=== PATIENT | female | born 1960 | race African-American/Black ===

== ENCOUNTER 2022-08-30 00:51 | Day surgery (SDC) | payer OTHER, SELFPAY ==
[2022-08-30 11:51] VITALS: BP 150/82; PULSE 73; RESP 19; TEMP 36.2; O2SAT 100
[2022-08-30] MEDS: LACTATED RINGERS 1,000 ML 150 ML IV CONT (12:13)
[2022-08-30 12:14] LABS: Glucose Point of Care 155 mg/dl (65-105)
--- NOTE | 2022-08-30 12:49 | P.PNAN_ITS ---
Anes - Initial Pre Proc Eval Procedure: Operation Date: 08/30/22 13:15 Proposed Procedures p Screening Colonoscopy - Reji Menendez MD Date/Time: 08/30/22 12:49 Surgeon: Reji Menendez MD Pre Op Diagnosis: neoplasm screening Patient Data Age: 62 Gender: F Height: 1.6 m Weight: 94.7 kg Last Vital Signs Temp 97.1 F L 08/30/22 11:51 Pulse 73 08/30/22 11:51 Resp 19 08/30/22 11:51 BP 150/82 H 08/30/22 11:51 Pulse Ox 100 08/30/22 11:51 O2 Del Method Room Air 08/30/22 11:51 Allergies Allergy/AdvReac Type Severity Reaction Status Date / Time No Known Allergies Allergy Verified 08/30/22 11:50 Home Medications Medication Instructions Recorded Confirmed Type amlodipine 10 mg tablet 10 mg PO DAILY 08/22/22 08/30/22 History glimepiride 4 mg tablet 4 mg PO DAILY 08/22/22 08/30/22 History ibuprofen 800 mg tablet 800 mg PO Q8H PRN Pain 08/22/22 08/30/22 History insulin glargine 100 26 unit subcut DAILY 08/22/22 08/30/22 History unit-lixisenatide 33 mcg/mL subcutaneous pen (Soliqua 100/33) insulin glargine U-300 conc 300 35 unit subcut DAILY 08/22/22 08/30/22 History unit/mL (3 mL) subcutaneous pen (Toujeo Max U-300 SoloStar) metformin 1,000 mg tablet 1,000 mg PO BID 08/22/22 08/30/22 History olmesartan 40 1 tablet PO DAILY 08/22/22 08/30/22 History mg-hydrochlorothiazide 25 mg tablet Laboratory Tests 08/30/22 12:09 POC Capillary Glucose 155 mg/dl H mg/dl (65-105) Patient hx anesthesia problems: none Family hx anesthesia problems: none Results Review: All pre-operative results and documents have been reviewed as part of the pre- operative evaluation. PMFSH Social History Social History Years smoked: 30 Smoking status: Current every day smoker Tobacco type: cigarettes Alcohol intake: current Alcohol use details: socially on weekends Substance use: never Substance use type: does not use Living arrangements: with family Spiritual care concerns: No Anes - Eval Final PreProcedure Day of Procedure 08/30/22 12:49 Patient weight: obese Heart: regular rate and rhythm Lungs: clear to auscultation Airway: Mallampati scale class II Neurological: alert and oriented Last oral intake: >/= 8 hours ASA classification: III Emergent: no Anesthetic plan: proceed Anesthesia type and monitoring: general GIVS and standard monitoring Results Review: All pre-operative results and documents have been reviewed as part of the pre- operative evaluation. Informed Consent: The patient's anesthetic plan and its attendant risks and benefits were discussed with the patient/family/POA. Questions were solicited and answers provided to the satisfaction of the patient/family/POA.
--- NOTE | 2022-08-30 13:04 | PM.HPGS ---
History of Present Illness History of Present Illness Consent: Risks, benefits, and alternatives have been discussed and questions answered. Patient agrees to proceed with procedure. Chief complaint: neoplasm screening Narrative: Ana M Vega is a 62 year old female here for screening colonoscopy Review of Systems Constitutional: Constitutional: Denies headache(s) and Denies weakness Eyes: Eyes: Denies blurry vision ENT: Reports Normal hearing present, Denies headache(s) and Denies neck pain Cardiovascular: Cardiovascular: Denies chest pain and Denies dyspnea Respiratory: Respiratory: Denies dyspnea Gastrointestinal: Gastrointestinal: Reports no additional gastrointestinal complaints Genitourinary: Genitourinary: Denies dysuria Musculoskeletal: Musculoskeletal: Denies neck pain Integumentary/Breasts: Skin/Breast: Denies dry skin Neurologic: Reports Normal hearing present, Denies headache(s) and Denies weakness Psychiatric: Psychiatric: Denies anxiety Endocrine: Endocrine: Denies change in body appearance Hematologic/Lymphatic: Hematologic/Lymphatic: Denies easy bleeding Allergic/Immunologic: Allergic/Immunologic: Denies urticaria [facility] Past Medical History Medical History (Updated 08/30/22 @ 13:05 by Reji Menendez MD) Colon cancer screening Social History Social History Years smoked: 30 Smoking status: Current every day smoker Tobacco type: cigarettes Alcohol intake: current Alcohol use details: socially on weekends Substance use: never Substance use type: does not use Living arrangements: with family Spiritual care concerns: No Meds Home Medications and Allergies Home Medications Medication Instructions Recorded Confirmed Type amlodipine 10 mg tablet 10 mg PO DAILY 08/22/22 08/30/22 History glimepiride 4 mg tablet 4 mg PO DAILY 08/22/22 08/30/22 History ibuprofen 800 mg tablet 800 mg PO Q8H PRN Pain 08/22/22 08/30/22 History insulin glargine 100 26 unit subcut DAILY 08/22/22 08/30/22 History unit-lixisenatide 33 mcg/mL subcutaneous pen (Soliqua 100/33) insulin glargine U-300 conc 300 35 unit subcut DAILY 08/22/22 08/30/22 History unit/mL (3 mL) subcutaneous pen (Toujeo Max U-300 SoloStar) metformin 1,000 mg tablet 1,000 mg PO BID 08/22/22 08/30/22 History olmesartan 40 1 tablet PO DAILY 08/22/22 08/30/22 History mg-hydrochlorothiazide 25 mg tablet Allergies Allergy/AdvReac Type Severity Reaction Status Date / Time No Known Allergies Allergy Verified 08/30/22 11:50 Vital Signs Vital Signs - 24 hr 08/30/22 11:51 Temperature 97.1 F L Pulse Rate 73 Respiratory Rate 19 Blood Pressure 150/82 H Pulse Oximetry 100 Oxygen Delivery Room Air Exam Const: General: comfortable and no acute distress HENMT: Face/Nose/Sinus: Normal nares present Eyes: General: appearance normal, both eyes and all related structures Neck: Neck: no JVD Resp: Auscultation: clear to auscultation bilaterally Cardio: Rate: regular rate Rhythm: regular rhythm GI: Inspection: non-distended GI Palp: Yes Soft to palpation Skin: General skin exam: normal color Neuro: General: gait normal Speech: normal speech Extrem: General: normal to inspection Psych: Mental Status: mental status grossly normal Assessment and Plan Assessment and plan (1) Colon cancer screening: Code(s): Z12.11 - Encounter for screening for malignant neoplasm of colon Status: Acute Assessment and Plan: colonoscopy
[2022-08-30 13:32] VITALS: BP 113/62; PULSE 76; RESP 19; O2SAT 100
[2022-08-30 13:42] VITALS: BP 133/81; PULSE 71; RESP 18; O2SAT 100
[2022-08-30 13:52] VITALS: BP 147/92; PULSE 73; RESP 18; O2SAT 100
== END 2022-08-30 14:01 | disposition home or self-care (01) ==
PROVIDERS: PCP Internal Medicine; Visit Provider Internal Medicine Gastroenterology
PROC: 0DJD8ZZ Inspection of Lower Intestinal Tract, Via Natural or Artificial Opening Endoscopic (ICD-10-PCS; CPT 45378; principal; 2022-08-30 13:15)
DX: Z12.11 Encounter for screening for malignant neoplasm of colon (principal); K63.5 Polyp of colon; K57.30 Diverticulosis of large intestine without perforation or abscess without bleeding; Z79.4 Long term (current) use of insulin; Z79.84 Long term (current) use of oral hypoglycemic drugs; F17.210 Nicotine dependence, cigarettes, uncomplicated; E66.9 Obesity, unspecified; Z68.37 Body mass index [BMI] 37.0-37.9, adult
CPT/HCPCS: 45380; 82948; 88305; J2704; J7120

== ENCOUNTER 2023-06-05 15:05 | Emergency (ER) | payer OTHER, SELFPAY ==
--- NOTE | ~2023-06-05 | XR_ITS ---
EXAM: XR hip RT 2V w AP pelvis, XR sacrum coccyx min 2V DATE: 06/05/2023 18:09 (accession [id number]), 06/05/2023 18:08 (accession [id number]) HISTORY: SI pain . COMPARISON: None available. FINDINGS: Normal mineralization. No fracture or dislocation. No lytic or blastic lesion. Mild lumbar degenerative disc disease. 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 Pelvic and hip en thesopathy. No erosion or periosteal change. Soft tissues within normal limits. IMPRESSION: No acute osseous finding in the pelvis, right hip, or sacrum/coccyx. Reviewed, dictated and finalized at location K. IMPRESSION: No acute osseous finding in the pelvis, right hip, or sacrum/coccyx .
[2023-06-05 15:47] VITALS: BP 151/74; PULSE 81; RESP 16; TEMP 36.2; O2SAT 100
[2023-06-05 16:22] VITALS: BP 143/77; PULSE 81; RESP 18; TEMP 36.4; O2SAT 100
--- NOTE | 2023-06-05 17:53 | ED.LOWEXIN ---
HPI - Extremity Injury (Lower) General Chief Complaint: Extremity Injury, Lower Stated Complaint: right hip pain with radiation down leg Time Seen by Provider: 06/05/23 16:33 History of Present Illness HPI Narrative: 63-year-old female reports for evaluation for right hip pain and back pain that radiates down the lateral aspect of her right leg and at times into her right great toe times a couple of weeks. She denies trauma or injury. States the pain has slowly progressed and worsened and now has significant pain with ambulation. She reports taking ibuprofen and Tylenol without relief. She denies fever, vomiting, body aches or chills, abdominal pain, urinary complaints, loss of bowel or bladder control or retention, saddle anesthesia, lower extremity weakness, IV drug use, immunosuppressant therapy. Related Data Home Medications Medication Instructions Recorded Confirmed amlodipine 10 mg tablet 10 mg PO DAILY 08/22/22 08/30/22 glimepiride 4 mg tablet 4 mg PO DAILY 08/22/22 08/30/22 ibuprofen 800 mg tablet 800 mg PO Q8H PRN Pain 08/22/22 08/30/22 insulin glargine 100 26 unit subcut DAILY 08/22/22 08/30/22 unit-lixisenatide 33 mcg/mL subcutaneous pen (Soliqua 100/33) insulin glargine U-300 conc 300 35 unit subcut DAILY 08/22/22 08/30/22 unit/mL (3 mL) subcutaneous pen (Toujeo Max U-300 SoloStar) metformin 1,000 mg tablet 1,000 mg PO BID 08/22/22 08/30/22 olmesartan 40 1 tablet PO DAILY 08/22/22 08/30/22 mg-hydrochlorothiazide 25 mg tablet Allergies Allergy/AdvReac Type Severity Reaction Status Date / Time No Known Allergies Allergy Verified 06/05/23 16:32 Review of Systems Review of Systems: CONSTITUTIONAL: Denies fever, chills EYES: Denies visual changes, redness, or discharge. ENT: Denies rhinorrhea, congestion, sore throat, or otalgia. CARDIOVASCULAR: Denies chest pain, palpitations, or edema. RESPIRATORY: Denies cough or dyspnea. GASTROINTESTINAL: Denies abdominal pain, nausea, vomiting, or diarrhea. GENITOURINARY: Denies dysuria or hematuria. SKIN: Denies rash or itching. MUSCULOSKELETAL: See HPI NEUROLOGIC: Denies headache, numbness, dizziness, or weakness. PSYCHIATRIC: Denies anxiety or depression. [facility] Past Medical History Medical History Colon cancer screening Social History Social History Years smoked: 30 Smoking status: Current every day smoker Tobacco type: cigarettes Alcohol intake: current Alcohol use details: socially on weekends Substance use: never Substance use type: does not use Living arrangements: with family Spiritual care concerns: No Exam Narrative: GENERAL: Well-appearing, in no acute distress. Patient resting comfortably in exam chair. She is pleasant and conversational. HEAD: Normocephalic NECK: Supple. CHEST: No respiratory distress. Clear to auscultation, no adventitious breath sounds. HEART: Regular rate and rhythm. No murmur heard. Normal peripheral pulses. BACK: No thoracic or lumbar spinous tenderness, step-offs or deformities. No overlying skin changes. Tenderness over the right SI and right iliac crest without deformity or crepitus. Full passive and active range of motion of hip. Bilateral lower extremity strength 5/5. Sensation intact throughout. Negative straight leg raise bilaterally. DP pulses 2+. Cap refill less than 2. EXTREMITIES: Normal range of motion. No edema. SKIN: Warm, dry, no rash. NEURO: No focal deficits. Alert and oriented x3. PSYCH: Normal mood and affect. Course Vital Signs Vital signs: Vital Signs Temperature 97.1 F L 06/05/23 15:47 Pulse Rate 81 06/05/23 15:47 Respiratory Rate 16 06/05/23 15:47 Blood Pressure 151/74 H 06/05/23 15:47 Pulse Oximetry 100 06/05/23 15:47 Oxygen Delivery Room Air 06/05/23 15:47 Temperature 97.6 F 06/05/23 16:22 Pulse Rate
[2023-06-05] MEDS: LIDOCAINE 5% PATCH 1 PATCH TRANSDERM (17:56)
[2023-06-05] MEDS: CYCLOBENZAPRINE HCL 10 MG TABLET PO (17:56)
== END 2023-06-05 19:12 | disposition home or self-care (01) ==
PROVIDERS: Emergency Provider Physician Assistant; PCP Internal Medicine
DX: M46.1 Sacroiliitis, not elsewhere classified (principal); F17.210 Nicotine dependence, cigarettes, uncomplicated; Z79.84 Long term (current) use of oral hypoglycemic drugs; Z79.4 Long term (current) use of insulin
CPT/HCPCS: 72220; 73502; 99283; A9270